=== PATIENT | male | born 1995 | race Asian ===

== ENCOUNTER 2016-06-10 09:37 | Emergency (ER) | payer BC ==
[2016-06-10 09:43] VITALS: BP 157/76
[2016-06-10] MEDS ORDERED: Ketorolac INJ* 60 MG/2 ML VIAL IM ONE (10:07)
[2016-06-10 11:44] LABS: Mono Internal Control QC Line Present
--- NOTE | 2016-06-10 11:46 | ED ---
Influenza-Like Illness - HPI Summary HPI Summary: Patient presents with a sore throat for 1.5 weeks that has not improved with conservative treatment of 200mg of ibuprofen every 4 hours, rest and eating well. He has pain when he swallows and the pain wakes him from sleep. He has a history of sore throats that usually are self-limiting and resolve in 2-3 days. He denies fever, chills, N/V/D, LEWIS, neck stiffness, cough or congestion. No difficulty breathing. - History of Current Complaint Chief Complaint: EDThroatPain Time Seen by Provider: 06/10/16 09:49 Hx Obtained From: Patient Onset/Duration: Gradual Onset Severity: Moderate Associated Signs & Symptoms: Sore Throat Related Hx: Possible Flu/Infectious Exposure - Allergy/Home Medications Allergies/Adverse Reactions: Allergies Allergy/AdvReac Type Severity Reaction Status Date / Time No Known Allergies Allergy Verified 06/10/16 09:40 PMH/Surg Hx/FS Hx/Imm Hx Previously Healthy: Yes Infectious Disease History: No Infectious Disease History: Denies: Traveled Outside the [place] in Last 30 Days - Family History Known Family History: Positive: None - Social History Occupation: Student Lives: Alone Alcohol Use: None Substance Use Type: Reports: None Smoking Status (MU): Never Smoked Tobacco Review of Systems Negative: Fever, Chills Positive: Sore Throat. Negative: Ear Ache, Nasal Discharge Negative: Chest Pain Negative: Shortness Of Breath, Cough Negative: Headache All Other Systems Reviewed And Are Negative: Yes Physical Exam Triage Information Reviewed: Yes Vital Signs On Initial Exam: Initial Vitals Temp Pulse Resp BP Pulse Ox 97.7 F 71 16 157/76 99 06/10/16 09:41 06/10/16 09:41 06/10/16 09:41 06/10/16 09:41 06/10/16 09:41 Vital Signs Reviewed: Yes Appearance: Positive: Well-Appearing, Well-Nourished, Pain Distress Skin: Positive: Warm, Skin Color Reflects Adequate Perfusion, Dry, Soft Head/Face: Positive: Normal Head/Face Inspection Eyes: Positive: EOMI, VANESA, Conjunctiva Clear ENT: Positive: Hearing grossly normal, Pharyngeal erythema, Nasal congestion, TMs normal. Negative: Tonsillar swelling, Tonsillar exudate, Trismus, Muffled/ hoarse voice Neck: Positive: Supple, Nontender, No Lymphadenopathy Respiratory/Lung Sounds: Positive: Clear to Auscultation, Breath Sounds Present Cardiovascular: Positive: RRR Musculoskeletal: Negative: Edema Left, Edema Right Neurological: Positive: Sensory/Motor Intact, Alert, Oriented to Person Place, Time, NV Bundle Intact Distally, Normal Gait Psychiatric: Positive: Affect/Mood Appropriate AVPU Assessment: Alert Diagnostics - Vital Signs Vital Signs Temp Pulse Resp BP Pulse Ox 06/10/16 09:41 97.7 F 71 16 157/76 99 - Laboratory Lab Results: Lab Results 06/10/16 Range/Units 10:48 Group A Strep Rapid Negative (Negative) Lab Statement: Any lab studies that have been ordered have been reviewed, and results considered in the medical decision making process. Re-Evaluation - Re-Evaluation First Eval Re-Evaluation Time: 11:30 Change: Improved - patient's pain is almost gone with Toradol injection Flu Symptom Course/Dx - Diagnoses Differential Diagnosis/HQI/PQRI: Positive: Bronchitis, Influenza, Pneumonia, Upper Respiratory Infection Provider Diagnoses: Pharyngitis Discharge - Discharge Plan Condition: Stable Disposition: HOME Patient Education Materials: Pharyngitis (ED) Referrals: [facility] [Medical Doctor] - Additional Instructions: Please begin using Ibuprofen 600mg three times daily with meals tomorrow at lunch for the next 3-5 days. Drink extra fluids that are soothing to the throat and you can use over the counter medication like Cephaclor spray as well. Follow -up with [facility] if your symptoms persist, since you may need or want a referral to an ENT (ear, nose, and throat) doctor. Return to the emergency department if symptoms worsen.
== END 2016-06-10 11:53 | disposition home or self-care (01) ==
LOC: ED 09:37
DX: J02.9 Acute pharyngitis, unspecified (principal)
CPT/HCPCS: 36415; 86308; 87651; 96372; 99282; J1885